=== PATIENT | female | born 1945 | race Caucasian/White ===

== ENCOUNTER → 2022-03-13 11:53 | Outpatient (BNVA) | payer MEDICARE, SELFPAY | PROVIDERS: Family Provider Nurse Practitioner Family; PCP Nurse Practitioner Family; Visit Provider Nurse Practitioner Family | DX: K14.6 Glossodynia (principal); R53.83 Other fatigue | CPT/HCPCS: 82607; 82746; 84425; 84443; 85025 ==

== ENCOUNTER → 2022-03-19 11:46 | Outpatient (BNVA) | payer MEDICARE, SELFPAY | PROVIDERS: Family Provider Nurse Practitioner Family; PCP Nurse Practitioner Family; Visit Provider Nurse Practitioner Family | DX: K14.6 Glossodynia (principal); R53.83 Other fatigue | CPT/HCPCS: 84425 ==

== ENCOUNTER → 2022-09-04 11:15 | Outpatient (BNVA) | payer MEDICARE, SELFPAY | PROVIDERS: Family Provider Nurse Practitioner Family; PCP Nurse Practitioner Family; Visit Provider Nurse Practitioner Family | DX: K14.6 Glossodynia (principal) | CPT/HCPCS: 85651; 86140; 86160; 86162; 86235; 86255; 86376; 86431 ==

== ENCOUNTER → 2022-10-22 14:43 | Outpatient (BNVA) | payer MEDICARE, SELFPAY | PROVIDERS: Family Provider Nurse Practitioner Family; PCP Nurse Practitioner Family; Referring Provider Nurse Practitioner Family; Visit Provider Internal Medicine | DX: E06.3 Autoimmune thyroiditis (principal); E07.9 Disorder of thyroid, unspecified; K14.6 Glossodynia | CPT/HCPCS: 99204 ==

== ENCOUNTER → 2022-10-29 08:55 | Outpatient (BNVA) | payer MEDICARE, SELFPAY | PROVIDERS: Family Provider Nurse Practitioner Family; PCP Nurse Practitioner Family; Visit Provider Internal Medicine | DX: E07.9 Disorder of thyroid, unspecified (principal) | CPT/HCPCS: 82310; 83970; 84439; 84443 ==

== ENCOUNTER → 2023-02-19 12:36 | Outpatient (BNVA) | payer MEDICARE, SELFPAY | PROVIDERS: Family Provider Nurse Practitioner Family; PCP Nurse Practitioner Family; Referring Provider Internal Medicine; Visit Provider Internal Medicine | DX: F41.1 Generalized anxiety disorder (principal); E07.9 Disorder of thyroid, unspecified; E06.3 Autoimmune thyroiditis; R79.89 Other specified abnormal findings of blood chemistry; K14.6 Glossodynia | CPT/HCPCS: 99204 ==